=== PATIENT | female | born 1955 | race Asian ===

== ENCOUNTER 2023-02-17 10:44 | Outpatient (REF) | payer BC, SELFPAY | END 2023-02-17 10:45 | disposition home or self-care (01) | LOC: LBN 10:44 | PROVIDERS: Visit Provider Nurse Practitioner Family | DX: L98.9 Disorder of the skin and subcutaneous tissue, unspecified (principal) | CPT/HCPCS: 87070; 87205 ==

== ENCOUNTER → 2023-02-17 11:32 | Outpatient (CLI) | payer BC, SELFPAY ==
--- NOTE | 2023-02-17 10:15 | DI.RAD_ITS ---
Exam(s) XR TIB/FIB RT EXAM: XR TIB/FIB RT CLINICAL HISTORY: evaluate fx M89.8X6 disorders of bone,pain rt tib. TECHNIQUE: 2D digital imaging was performed. COMPARISON: No exams were available for comparison FINDINGS: Two views. No evidence of acute fracture nor periosteal proliferation. Bone density normal. No osseous lesions evident. No radiopaque foreign bodies. IMPRESSION: No significant osseous findings in the tibia and fibula. DATA REPOSITORY: RADIATION DOSE DELIVERED:
== END ==
PROVIDERS: Visit Provider Nurse Practitioner Family
DX: M89.8X6 Other specified disorders of bone, lower leg (principal); M79.604 Pain in right leg
CPT/HCPCS: 73590